=== PATIENT | female | born 1945 ===

== ENCOUNTER 2024-03-05 07:16 | Day surgery (SDC) | payer MEDICARE, BC ==
[2024-03-05] MEDS ORDERED: Propofol 200 MG/20 ML SDV ONE ×2 (07:41→09:31)
[2024-03-05] MEDS ORDERED: fentaNYL 50 MCG/ML SDV ONE (07:41)
[2024-03-05] MEDS: Lactated Ringers 1,000 ML IV SCH (08:16)
[2024-03-05 10:33] VITALS: BP 128/63; PULSE 59
== END 2024-03-05 11:00 | disposition home or self-care (01) ==
LOC: JP.SDS 07:16
PROVIDERS: ATTEND Family Medicine
DX: K63.5 Polyp of colon (principal); K31.89 Other diseases of stomach and duodenum; K31.7 Polyp of stomach and duodenum; R19.4 Change in bowel habit; I10 Essential (primary) hypertension
CPT/HCPCS: 00813; 43239; 45331; J2704; J3010; J7120; 88305